=== PATIENT | female | born 1965 | race African-American/Black ===

== ENCOUNTER 2017-06-02 15:46 | Emergency (ER) | payer SELFPAY ==
[~2017-06-02] VITALS: Ht 165.1 cm; Wt 81.6 kg
[2017-06-02] MEDS ORDERED: HYDR25TA4 PO (15:59)
--- NOTE | 2017-06-02 16:09 | NUR ---
PT IS IN ROOM #1B. DR JOHN EVALUATED THE PT.
[2017-06-02 16:15] LABS: BASOPHILS % (AUTO) 0.6 % (0.0-2.0); EOSINOPHILS # (AUTO) 0.1 K/uL (0.0-0.7); EOSINOPHILS % (AUTO) 1.5 % (0.0-7.0); HEMATOCRIT 40.7 % (31.2-41.9); HEMOGLOBIN 13.6 g/dL (10.9-14.3); LYMPHOCYTES # (AUTO) 1.8 K/uL (20.0-40.0); LYMPHOCYTES % (AUTO) 31.9 % (20.5-51.5); MEAN CORPUSCULAR HEMOGLOBIN 33.3 uug (24.7-32.8); MEAN CORPUSCULAR HGB CONC 34 g/dL (32.3-35.6); MEAN CORPUSCULAR VOLUME 99.4 fL (75.5-95.3); MONOCYTES # (AUTO) 0.6 K/uL (2.0-10.0); MONOCYTES % (AUTO) 11.6 % (0.0-11.0); NEUTROPHILS # (AUTO) 3.1 K/uL (1.8-8.9); NEUTROPHILS % (AUTO) 54.4 % (38.5-71.5); PLATELET COUNT (AUTO) 159 K/uL (179-408); WHITE BLOOD COUNT (AUTO) 5.6 K/uL (3.8-11.8)
[2017-06-02 16:23] LABS: CREATININE 0.8 mg/dL (0.6-1.3); POTASSIUM 3.7 mmol/L (3.5-5.1)
[2017-06-02 16:39] LABS: BILIRUBIN,DIRECT 0.3 mg/dL (0.0-0.2); BILIRUBIN,TOTAL 0.8 mg/dL (0.2-1.0); TOTAL PROTEIN, SERUM 7.3 g/dL (6.4-8.2)
[2017-06-02] MEDS ORDERED: IV NORMAL SALINE 1000 ML BAG IV ONE (17:00)
[2017-06-02] MEDS ORDERED: ONDANSETRON 4 MG/2 ML VIAL ONE (17:12)
[2017-06-02] MEDS ORDERED: ONDANSETRON IV *ER 4 MG/2 ML VIAL IV ONE (17:15)
[2017-06-02] MEDS ORDERED: IV NORMAL SALINE 100 ML ONE (17:19)
[2017-06-02] MEDS ORDERED: IOHEXOL 350 100 ML INFUS..BTL ONE (17:19)
[2017-06-02] MEDS ORDERED: NORMAL SALINE FLUSH 10 ML DISP.SYRIN ONE (17:19)
--- NOTE | 2017-06-02 18:29 | NUR ---
PT WAS D/C TO HOME. D/C INSTRUCTIONS GIVEN TO THE PT.
[2017-06-02 18:30] VITALS: BP 135/81
== END 2017-06-02 18:35 | disposition home or self-care (01) ==
LOC: ER 15:48
DX: R07.89 Other chest pain (principal); Z79.899 Other long term (current) drug therapy; Z88.0 Allergy status to penicillin
CPT/HCPCS: 36415; 70030-TC; 71045; 85025; 85730; 93005; A4663; J2405; J3490; J7030; Q9967